=== PATIENT | male | born 1955 | race African-American/Black ===

== ENCOUNTER 2017-04-20 18:15 | Inpatient (IN) ==
[2017-04-20] MEDS ORDERED: LEVOFLOXACIN INJ 750 MG in PREMIX 1 EACH IV STA (18:36)
[2017-04-20] MEDS ORDERED: SODIUM CHLORIDE 0.9% 500 ML IV STA (18:36)
[2017-04-20] MEDS ORDERED: ALBUTEROL/IPRATROPIUM 3 ML NEB RESP TX STA (18:36)
[2017-04-20 19:09] LABS: Basophils % 0.2 % (0.0-0.8); Eosinophils # 0.1 10*3/uL (0.0-0.87); Eosinophils % 0.9 % (0.00-10.9); Hematocrit 42.3 VOL% (42.0-52.0); Hemoglobin 13.5 GM/DL (14.0-18.0); Immature Granulocytes % 0.6 %; Immature Granulocytes Absolute 0.03 #; Lymphocytes # 1.4 10*3/uL (1.4-4.0); Mean Corpuscular HGB Conc 31.9 GM/DL (32-36); Mean Corpuscular Hemoglobin 31 PG (27-34); Mean Corpuscular Volume 98.4 FL (87-102); Mean Platelet Volume 14.2 FL (9.6-12.0); Monocytes # 0.8 10*3/uL (0.11-0.8); Neutrophils # 3.1 10*3/uL (1.4-7.4); Neutrophils % 58.3 % (38.7-73.9); Red Cell Distribution Width 13.8 % (9.3-17.3); White Blood Count 5.4 T/CUMM (4-12)
[2017-04-20 19:13] LABS: Platelet Count 73 T/CUMM (130-400)
[2017-04-20 19:23] LABS: INR 1.1; PT Patient Result 11.3 SECS; Partial Thromboplastin Time 31.5 SECS (0-40)
[2017-04-20 19:23] LABS: Apearance,Urine CLEAR (Clear); Bacteria,Urine Few /HPF (Few); Bilirubin,Urine Negative (Negative); Blood, Urine Negative (Negative); Glucose,Urine (UA) Negative (Negative); Ketones,Urine Negative (Negative); Mucus,Urine Occasional /LPF (Occasional); Nitrite,Urine Negative (Negative); Protein,Urine Negative; RBC,Urine 1 /HPF (0-4); Urine Color Yellow (Yellow); Urine Specific Gravity 1.013 (1.001-1.035); WBC,Urine 1 /HPF (0-6)
[2017-04-20 19:26] LABS: Ammonia 58 UMOL/L (11-32)
[2017-04-20 20:24] LABS: Lactic Acid 0.9 MMOL/L (0.4-2.0)
[2017-04-20 20:29] LABS: Hypochromasia Slight; Platelet Estimate Decreased
[2017-04-20 20:36] LABS: Alanine Aminotransferase 68 U/L (16-61); Albumin 2.7 G/DL (3.4-5.0); Alkaline Phosphatase 164 U/L (45-117); Aspartate Amino Transferase 83 U/L (0-37); Blood Urea Nitrogen 52 MG/DL (7-18); Calcium 8.3 MG/DL (8.5-10.1); Glucose 160 MG/DL (74-106); Osmolality,Calculated 295.4 MOS/KG (273-304); Sodium 140 MMOL/L (136-145); Total Protein 6.2 G/DL (6.4-8.3)
[2017-04-20] MEDS ORDERED: SODIUM CHLORIDE 0.9% 2,000 ML IV STA (20:44)
[2017-04-20] MEDS ORDERED: LEVOFLOXACIN INJ 150 ML IV ONE (20:54)
[2017-04-20] MEDS ORDERED: hydrALAZINE 20 MG/1 ML VIAL ONE (22:51)
[2017-04-21] MEDS ORDERED: ONDANSETRON 4 MG/2 ML VIAL IV PRN (00:55)
[2017-04-21] MEDS ORDERED: hydrALAZINE 20 MG/1 ML VIAL IV PRN ×2 (00:55→11:26)
[2017-04-21] MEDS ORDERED: levETIRAcetam INJ 500 MG in SODIUM CHLORIDE 0.9% 50 ML IV SCH (02:00)
[2017-04-21] MEDS: METOCLOPRAMIDE 10 MG/2 ML VIAL IV SCH ×3 (02:07→14:30)
[2017-04-21] MEDS: DEXTROSE 5% NACL 0.45% 1,000 ML IV SCH ×3 (02:09→16:45)
[2017-04-21] MEDS: HYDROmorphone 2 MG/1 ML VIAL IV PRN (05:02)
[2017-04-21 07:54] LABS: Basophils % 0.2 % (0.0-0.8); Eosinophils # 0.1 10*3/uL (0.0-0.87); Eosinophils % 0.5 % (0.00-10.9); Hematocrit 44.4 VOL% (42.0-52.0); Hemoglobin 14.3 GM/DL (14.0-18.0); Immature Granulocytes % 0.9 %; Immature Granulocytes Absolute 0.09 #; Lymphocytes # 1.2 10*3/uL (1.4-4.0); Lymphocytes % 12.8 % (21.2-54.2); Mean Corpuscular HGB Conc 32.2 GM/DL (32-36); Mean Corpuscular Hemoglobin 32 PG (27-34); Mean Corpuscular Volume 97.8 FL (87-102); Mean Platelet Volume 13.4 FL (9.6-12.0); Monocytes # 1.3 10*3/uL (0.11-0.8); Monocytes % 13.6 % (1.7-12.7); Neutrophils # 6.9 10*3/uL (1.4-7.4); Platelet Count 80 T/CUMM (130-400); Red Blood Count 4.54 MC/CUMM (3.8-5.5); Red Cell Distribution Width 13.9 % (9.3-17.3); White Blood Count 9.6 T/CUMM (4-12)
[2017-04-21 08:26] LABS: Albumin 2.7 G/DL (3.4-5.0); Bilirubin,Total 1.5 MG/DL (0.2-1.0); Calcium 8.1 MG/DL (8.5-10.1); Osmolality,Calculated 292.3 MOS/KG (273-304); Potassium 5.2 MMOL/L (3.5-5.1)
[2017-04-21 08:41] LABS: Hypochromasia Slight
[2017-04-21] MEDS ORDERED: PANTOPRAZOLE 40 MG VIAL IV SCH (09:00)
[2017-04-21] MEDS: NITROGLYCERIN 2% OINT 1 INCH/GM PACK TOP SCH ×2 (09:59→20:53)
[2017-04-21] MEDS ORDERED: POLYETHYLENE GLYCOL POWDER 17 GM PACK PEG PRN (11:22)
[2017-04-21] MEDS ORDERED: ALBUTEROL/IPRATROPIUM 3 ML NEB RESP TX PRN (11:22)
[2017-04-21] MEDS ORDERED: hydrALAZINE 20 MG/1 ML VIAL IV SCH (11:30)
[2017-04-21] MEDS ORDERED: FUROSEMIDE 20 MG/2 ML VIAL IV SCH ×2 (11:30→21:47)
[2017-04-21] MEDS ORDERED: SKIN HEALING OINT (AQUAPHOR) 50 GM TUBE TOP PRN (12:08)
[2017-04-21] MEDS: cloNIDine 0.1 MG TABLET PEG SCH ×2 (14:30→20:54)
[2017-04-21] MEDS: ISOSORBIDE DINITRATE 20 MG TABLET PEG SCH ×2 (14:30→20:53)
[2017-04-21] MEDS: CARVEDILOL 12.5 MG TABLET PEG SCH ×2 (14:30→20:53)
[2017-04-21] MEDS: LACTULOSE 20 GM/30 ML UDCUP PO SCH ×2 (14:35→20:54)
[2017-04-21] MEDS: cefTRIAXone 1,000 MG in SYRINGE 1 EACH IV SCH (16:25)
[2017-04-21 17:32] LABS: Hepatitis A Ab IgM Quant 0.05 Index; Hepatitis A Ab IgM Result Negative (Negative); Hepatitis B Core IgM Quant 0.26 Index; Hepatitis B Core IgM Result Negative (Negative); Hepatitis B Surface Ag Quant < 0.10 Index; Hepatitis B Surface Ag Result Negative (Negative); Hepatitis C Virus Ab Quant > 11.00 Index; Hepatitis C Virus Ab Result Positive (Negative)
[2017-04-21] MEDS: DOXAZOSIN 4 MG TABLET PEG SCH (20:53)
[2017-04-21] MEDS: ASPIRIN CHEW 81 MG TABLET PO SCH (20:54)
[2017-04-21] MEDS: INSULIN REGULAR 100 UNIT/ML SUBCUT SCH (21:31)
[2017-04-21] MEDS ORDERED: FUROSEMIDE 20 MG/2 ML VIAL IV ONE (22:00)
[2017-04-21] MEDS: ALBUTEROL/IPRATROPIUM 3 ML NEB RESP TX SCH (23:43)
[2017-04-22] MEDS: DEXTROSE 5% NACL 0.45% 1,000 ML IV SCH ×3 (00:56→17:35)
[2017-04-22] MEDS: ALBUTEROL/IPRATROPIUM 3 ML NEB RESP TX SCH ×6 (02:31→23:50)
[2017-04-22] MEDS: ISOSORBIDE DINITRATE 20 MG TABLET PEG SCH ×3 (05:10→21:54)
[2017-04-22 07:09] LABS: Basophils % 0.3 % (0.0-0.8); Eosinophils # 0.1 10*3/uL (0.0-0.87); Eosinophils % 0.8 % (0.00-10.9); Hematocrit 39.1 VOL% (42.0-52.0); Immature Granulocytes % 0.5 %; Immature Granulocytes Absolute 0.03 #; Lymphocytes # 1.3 10*3/uL (1.4-4.0); Lymphocytes % 21.5 % (21.2-54.2); Mean Corpuscular HGB Conc 31.5 GM/DL (32-36); Mean Corpuscular Hemoglobin 31 PG (27-34); Mean Corpuscular Volume 98.2 FL (87-102); Mean Platelet Volume 12.6 FL (9.6-12.0); Monocytes % 15.8 % (1.7-12.7); Neutrophils # 3.8 10*3/uL (1.4-7.4); Neutrophils % 61.1 % (38.7-73.9); Red Blood Count 3.98 MC/CUMM (3.8-5.5); Red Cell Distribution Width 13.8 % (9.3-17.3)
[2017-04-22 07:18] LABS: Hemoglobin 12.3 GM/DL (14.0-18.0); Platelet Count 71 T/CUMM (130-400); White Blood Count 6.2 T/CUMM (4-12)
[2017-04-22 07:36] LABS: Eosinophils 1 % (0-10); Giant Platelets Few; Hypochromasia 1+; Lymphocytes 30 % (20-55); Ovalocytes Slight; Platelet Estimate Decreased; Segmented Neutrophils 51 % (50-85); Total Cells Counted 100
[2017-04-22 07:51] LABS: Albumin 2.4 G/DL (3.4-5.0); Bilirubin,Total 1.6 MG/DL (0.2-1.0); Calcium 8.2 MG/DL (8.5-10.1); Magnesium 1.6 MG/DL (1.8-2.4); Osmolality,Calculated 294.7 MOS/KG (273-304); Potassium 3.9 MMOL/L (3.5-5.1); Total Protein 6.2 G/DL (6.4-8.3)
[2017-04-22] MEDS: INSULIN REGULAR 100 UNIT/ML SUBCUT SCH ×4 (08:49→21:54)
[2017-04-22] MEDS: NITROGLYCERIN 2% OINT 1 INCH/GM PACK TOP SCH ×2 (09:30→21:59)
[2017-04-22] MEDS: LACTULOSE 20 GM/30 ML UDCUP PO SCH ×2 (09:30→21:54)
[2017-04-22] MEDS: CLOPIDOGREL 75 MG TABLET PO SCH (09:31)
[2017-04-22] MEDS: CARVEDILOL 12.5 MG TABLET PEG SCH ×2 (09:31→21:54)
[2017-04-22] MEDS: cloNIDine 0.1 MG TABLET PEG SCH ×4 (09:31→21:54)
[2017-04-22] MEDS: ASPIRIN CHEW 81 MG TABLET PO SCH (09:31)
[2017-04-22] MEDS ORDERED: DEXTROSE 50% 25 GM/50 ML VIAL IV ONE (12:17)
[2017-04-22] MEDS: cefTRIAXone 1,000 MG in SYRINGE 1 EACH IV SCH (12:24)
[2017-04-22] MEDS ORDERED: MAGNESIUM SULF RIDER 4 GM in PREMIX 1 EACH IV PRN (13:19)
[2017-04-22] MEDS: cefTRIAXone 500 MG in SYRINGE 1 EACH IV SCH (13:45)
[2017-04-22] MEDS: MAGNESIUM SULF RIDER 2 GM in PREMIX 1 EACH IV PRN (14:03)
[2017-04-22] MEDS: DOXAZOSIN 4 MG TABLET PEG SCH (21:53)
[2017-04-23] MEDS: DEXTROSE 5% NACL 0.45% 1,000 ML IV SCH ×3 (02:54→17:46)
[2017-04-23 03:03] LABS: Basophils % 0.4 % (0.0-0.8); Eosinophils # 0.1 10*3/uL (0.0-0.87); Eosinophils % 2.5 % (0.00-10.9); Hematocrit 37.2 VOL% (42.0-52.0); Hemoglobin 12.1 GM/DL (14.0-18.0); Immature Granulocytes % 0.4 %; Immature Granulocytes Absolute 0.02 #; Lymphocytes # 1.3 10*3/uL (1.4-4.0); Lymphocytes % 23.3 % (21.2-54.2); Mean Corpuscular HGB Conc 32.5 GM/DL (32-36); Mean Corpuscular Hemoglobin 31 PG (27-34); Mean Corpuscular Volume 95.9 FL (87-102); Mean Platelet Volume 13.8 FL (9.6-12.0); Monocytes # 0.9 10*3/uL (0.11-0.8); Monocytes % 15.3 % (1.7-12.7); Neutrophils # 3.2 10*3/uL (1.4-7.4); Neutrophils % 58.1 % (38.7-73.9); Platelet Count 69 T/CUMM (130-400); Red Blood Count 3.88 MC/CUMM (3.8-5.5); Red Cell Distribution Width 13.6 % (9.3-17.3); White Blood Count 5.5 T/CUMM (4-12)
[2017-04-23] MEDS: ALBUTEROL/IPRATROPIUM 3 ML NEB RESP TX SCH ×6 (03:19→23:15)
[2017-04-23 03:32] LABS: Albumin 2.4 G/DL (3.4-5.0); Bilirubin,Total 1.3 MG/DL (0.2-1.0); Osmolality,Calculated 287.4 MOS/KG (273-304); Potassium 3.3 MMOL/L (3.5-5.1); Total Protein 5.7 G/DL (6.4-8.3)
[2017-04-23 03:55] LABS: Band Neutrophils 2 % (0-10); Eosinophils 3 % (0-10); Lymphocytes 18 % (20-55); Metamyelocytes 1 %; Myelocytes 5 %; Segmented Neutrophils 64 % (50-85)
[2017-04-23 03:56] LABS: Platelet Estimate Decreased; Total Cells Counted 100
[2017-04-23] MEDS: ISOSORBIDE DINITRATE 20 MG TABLET PEG SCH ×3 (05:06→21:50)
[2017-04-23] MEDS: INSULIN REGULAR 100 UNIT/ML SUBCUT SCH ×4 (08:21→21:09)
[2017-04-23] MEDS: CLOPIDOGREL 75 MG TABLET PO SCH (09:44)
[2017-04-23] MEDS: NITROGLYCERIN 2% OINT 1 INCH/GM PACK TOP SCH ×2 (09:44→21:50)
[2017-04-23] MEDS: LACTULOSE 20 GM/30 ML UDCUP PO SCH ×2 (09:44→21:50)
[2017-04-23] MEDS: cloNIDine 0.1 MG TABLET PEG SCH ×4 (09:44→21:50)
[2017-04-23] MEDS: CARVEDILOL 12.5 MG TABLET PEG SCH ×2 (09:44→21:50)
[2017-04-23] MEDS: POTASSIUM CHLORIDE 20 MEQ/15 ML UDCUP PER TUBE PRN ×3 (09:44→15:10)
[2017-04-23] MEDS: cefTRIAXone 500 MG in SYRINGE 1 EACH IV SCH (12:36)
[2017-04-23] MEDS: DOXAZOSIN 4 MG TABLET PEG SCH (21:50)
[2017-04-24 03:14] LABS: Basophils % 0.4 % (0.0-0.8); Eosinophils # 0.2 10*3/uL (0.0-0.87); Eosinophils % 3.2 % (0.00-10.9); Hematocrit 39.8 VOL% (42.0-52.0); Hemoglobin 12.7 GM/DL (14.0-18.0); Immature Granulocytes % 0.2 %; Immature Granulocytes Absolute 0.01 #; Lymphocytes # 1.3 10*3/uL (1.4-4.0); Lymphocytes % 23.2 % (21.2-54.2); Mean Corpuscular HGB Conc 31.9 GM/DL (32-36); Mean Corpuscular Hemoglobin 31 PG (27-34); Mean Corpuscular Volume 97.1 FL (87-102); Mean Platelet Volume 12.8 FL (9.6-12.0); Monocytes # 0.8 10*3/uL (0.11-0.8); Monocytes % 14.5 % (1.7-12.7); Neutrophils # 3.3 10*3/uL (1.4-7.4); Neutrophils % 58.5 % (38.7-73.9); Platelet Count 70 T/CUMM (130-400); Red Cell Distribution Width 13.5 % (9.3-17.3); White Blood Count 5.7 T/CUMM (4-12)
[2017-04-24] MEDS: ALBUTEROL/IPRATROPIUM 3 ML NEB RESP TX SCH ×6 (03:23→23:55)
[2017-04-24 03:27] LABS: Calcium 8.1 MG/DL (8.5-10.1); Magnesium 1.7 MG/DL (1.8-2.4); Osmolality,Calculated 287.3 MOS/KG (273-304); Potassium 4.2 MMOL/L (3.5-5.1)
[2017-04-24 03:31] LABS: Albumin 2.4 G/DL (3.4-5.0); Bilirubin,Total 1.4 MG/DL (0.2-1.0); Calcium 8.3 MG/DL (8.5-10.1); Osmolality,Calculated 288.3 MOS/KG (273-304); Potassium 4.2 MMOL/L (3.5-5.1); Total Protein 6.1 G/DL (6.4-8.3)
[2017-04-24] MEDS: DEXTROSE 5% NACL 0.45% 1,000 ML IV SCH ×3 (03:46→17:19)
[2017-04-24] MEDS: ISOSORBIDE DINITRATE 20 MG TABLET PEG SCH ×3 (06:37→22:26)
[2017-04-24] MEDS: INSULIN REGULAR 100 UNIT/ML SUBCUT SCH ×4 (08:34→22:26)
[2017-04-24] MEDS: CLOPIDOGREL 75 MG TABLET PO SCH (10:11)
[2017-04-24] MEDS: cloNIDine 0.1 MG TABLET PEG SCH ×4 (10:11→22:25)
[2017-04-24] MEDS: CARVEDILOL 12.5 MG TABLET PEG SCH ×2 (10:11→22:26)
[2017-04-24] MEDS: FUROSEMIDE 20 MG/2 ML VIAL IV SCH (10:11)
[2017-04-24] MEDS: NITROGLYCERIN 2% OINT 1 INCH/GM PACK TOP SCH ×2 (10:11→22:26)
[2017-04-24] MEDS: LACTULOSE 20 GM/30 ML UDCUP PO SCH ×2 (10:11→22:26)
[2017-04-24] MEDS: cefTRIAXone 500 MG in SYRINGE 1 EACH IV SCH (15:59)
[2017-04-24] MEDS: amLODIPine 5 MG TABLET PO SCH (17:40)
[2017-04-24] MEDS: DOXAZOSIN 4 MG TABLET PEG SCH (22:26)
[2017-04-25] MEDS: ALBUTEROL/IPRATROPIUM 3 ML NEB RESP TX SCH ×5 (03:51→21:13)
[2017-04-25] MEDS: ISOSORBIDE DINITRATE 20 MG TABLET PEG SCH ×3 (05:17→22:57)
[2017-04-25] MEDS: DEXTROSE 5% NACL 0.45% 1,000 ML IV SCH ×3 (06:54→20:31)
[2017-04-25] MEDS: INSULIN REGULAR 100 UNIT/ML SUBCUT SCH ×4 (08:30→22:57)
[2017-04-25 08:59] LABS: Calcium 7.9 MG/DL (8.5-10.1); Magnesium 1.6 MG/DL (1.8-2.4); Osmolality,Calculated 284.5 MOS/KG (273-304); Prealbumin 9.3 MG/DL (20-40)
[2017-04-25] MEDS: cloNIDine 0.1 MG TABLET PEG SCH ×4 (10:05→22:56)
[2017-04-25] MEDS: CLOPIDOGREL 75 MG TABLET PO SCH (11:42)
[2017-04-25] MEDS: amLODIPine 5 MG TABLET PO SCH (11:42)
[2017-04-25] MEDS: CARVEDILOL 12.5 MG TABLET PEG SCH ×2 (11:42→22:57)
[2017-04-25] MEDS: NITROGLYCERIN 2% OINT 1 INCH/GM PACK TOP SCH ×2 (12:32→22:58)
[2017-04-25] MEDS: LACTULOSE 20 GM/30 ML UDCUP PO SCH ×2 (12:32→22:57)
[2017-04-25] MEDS: MAGNESIUM SULF RIDER 2 GM in PREMIX 1 EACH IV PRN (19:42)
[2017-04-25] MEDS: DOXAZOSIN 4 MG TABLET PEG SCH (22:56)
[2017-04-25] MEDS: cefTRIAXone 500 MG in SYRINGE 1 EACH IV SCH (22:58)
[2017-04-26] MEDS: ALBUTEROL/IPRATROPIUM 3 ML NEB RESP TX SCH ×7 (00:32→23:59)
[2017-04-26] MEDS: DEXTROSE 5% NACL 0.45% 1,000 ML IV SCH ×3 (01:34→22:00)
[2017-04-26 05:23] LABS: Basophils % 0.4 % (0.0-0.8); Eosinophils # 0.1 10*3/uL (0.0-0.87); Eosinophils % 2.6 % (0.00-10.9); Hematocrit 38.2 VOL% (42.0-52.0); Hemoglobin 12.6 GM/DL (14.0-18.0); Immature Granulocytes % 0.4 %; Immature Granulocytes Absolute 0.02 #; Lymphocytes % 20.5 % (21.2-54.2); Mean Corpuscular Hemoglobin 31 PG (27-34); Monocytes # 0.7 10*3/uL (0.11-0.8); Monocytes % 14.2 % (1.7-12.7); Neutrophils # 3.2 10*3/uL (1.4-7.4); Neutrophils % 61.9 % (38.7-73.9); Platelet Count 70 T/CUMM (130-400); Red Blood Count 4.02 MC/CUMM (3.8-5.5); Red Cell Distribution Width 13.5 % (9.3-17.3); White Blood Count 5.1 T/CUMM (4-12)
[2017-04-26] MEDS: ISOSORBIDE DINITRATE 20 MG TABLET PEG SCH ×3 (06:23→22:19)
[2017-04-26 08:29] LABS: Eosinophils 2 % (0-10); Giant Platelets Few; Hypochromasia 1+; Lymphocytes 25 % (20-55); Platelet Estimate Decreased; Segmented Neutrophils 58 % (50-85); Total Cells Counted 100
[2017-04-26] MEDS: INSULIN REGULAR 100 UNIT/ML SUBCUT SCH ×4 (10:25→22:23)
[2017-04-26] MEDS: cloNIDine 0.1 MG TABLET PEG SCH ×4 (10:26→22:19)
[2017-04-26] MEDS: FUROSEMIDE 20 MG/2 ML VIAL IV SCH (10:27)
[2017-04-26] MEDS: CARVEDILOL 12.5 MG TABLET PEG SCH ×2 (10:27→22:20)
[2017-04-26] MEDS: LACTULOSE 20 GM/30 ML UDCUP PO SCH ×2 (10:27→22:20)
[2017-04-26] MEDS: NITROGLYCERIN 2% OINT 1 INCH/GM PACK TOP SCH ×2 (10:30→22:18)
[2017-04-26] MEDS: amLODIPine 5 MG TABLET PO SCH (10:31)
[2017-04-26] MEDS: CLOPIDOGREL 75 MG TABLET PO SCH (10:32)
[2017-04-26] MEDS: DOXAZOSIN 4 MG TABLET PEG SCH (22:19)
[2017-04-26] MEDS: cefTRIAXone 500 MG in SYRINGE 1 EACH IV SCH (22:31)
[2017-04-26 23:57] LABS: Albumin 2.4 G/DL (3.4-5.0); Calcium 7.5 MG/DL (8.5-10.1); Osmolality,Calculated 283.5 MOS/KG (273-304)
[2017-04-27] MEDS: ALBUTEROL/IPRATROPIUM 3 ML NEB RESP TX SCH ×5 (04:03→22:57)
[2017-04-27 05:04] LABS: Basophils % 0.3 % (0.0-0.8); Eosinophils # 0.1 10*3/uL (0.0-0.87); Eosinophils % 1.1 % (0.00-10.9); Hemoglobin 12.7 GM/DL (14.0-18.0); Immature Granulocytes % 0.5 %; Immature Granulocytes Absolute 0.04 #; Lymphocytes # 1.2 10*3/uL (1.4-4.0); Lymphocytes % 15.7 % (21.2-54.2); Mean Corpuscular HGB Conc 32.6 GM/DL (32-36); Mean Corpuscular Hemoglobin 31 PG (27-34); Mean Corpuscular Volume 94.4 FL (87-102); Mean Platelet Volume 13.9 FL (9.6-12.0); Monocytes # 0.9 10*3/uL (0.11-0.8); Monocytes % 12.6 % (1.7-12.7); Neutrophils # 5.2 10*3/uL (1.4-7.4); Neutrophils % 69.8 % (38.7-73.9); Platelet Count 69 T/CUMM (130-400); Red Blood Count 4.13 MC/CUMM (3.8-5.5); Red Cell Distribution Width 13.5 % (9.3-17.3); White Blood Count 7.4 T/CUMM (4-12)
[2017-04-27 05:24] LABS: Giant Platelets Few; Hypochromasia 1+; Ovalocytes Slight; Platelet Estimate Decreased
[2017-04-27] MEDS: ISOSORBIDE DINITRATE 20 MG TABLET PEG SCH ×3 (05:33→23:26)
[2017-04-27] MEDS: DEXTROSE 5% NACL 0.45% 1,000 ML IV SCH ×3 (05:34→23:20)
[2017-04-27] MEDS: INSULIN REGULAR 100 UNIT/ML SUBCUT SCH ×4 (07:57→23:08)
[2017-04-27] MEDS: cloNIDine 0.1 MG TABLET PEG SCH ×4 (10:04→23:26)
[2017-04-27] MEDS: amLODIPine 5 MG TABLET PO SCH (10:04)
[2017-04-27] MEDS: CLOPIDOGREL 75 MG TABLET PO SCH (10:05)
[2017-04-27] MEDS: CARVEDILOL 12.5 MG TABLET PEG SCH ×2 (10:05→23:26)
[2017-04-27] MEDS: LACTULOSE 20 GM/30 ML UDCUP PO SCH ×2 (10:05→23:27)
[2017-04-27] MEDS: NITROGLYCERIN 2% OINT 1 INCH/GM PACK TOP SCH ×2 (10:06→23:27)
[2017-04-27] MEDS: cefTRIAXone 500 MG in SYRINGE 1 EACH IV SCH (23:21)
[2017-04-27] MEDS: DOXAZOSIN 4 MG TABLET PEG SCH (23:26)
[2017-04-28] MEDS: ALBUTEROL/IPRATROPIUM 3 ML NEB RESP TX SCH ×3 (03:16→07:12)
[2017-04-28] MEDS: ISOSORBIDE DINITRATE 20 MG TABLET PEG SCH (04:54)
[2017-04-28] MEDS: DEXTROSE 5% NACL 0.45% 1,000 ML IV SCH (06:49)
[2017-04-28 06:51] LABS: Calcium 8.1 MG/DL (8.5-10.1); Potassium 4.5 MMOL/L (3.5-5.1); Prealbumin 10.2 MG/DL (20-40)
[2017-04-28 08:12] VITALS: BP 135/71
[2017-04-28] MEDS: INSULIN REGULAR 100 UNIT/ML SUBCUT SCH (09:14)
[2017-04-28] MEDS: amLODIPine 5 MG TABLET PO SCH (09:29)
[2017-04-28] MEDS: LACTULOSE 20 GM/30 ML UDCUP PO SCH (09:31)
[2017-04-28] MEDS: cloNIDine 0.1 MG TABLET PEG SCH (09:31)
[2017-04-28] MEDS: CARVEDILOL 12.5 MG TABLET PEG SCH (09:32)
[2017-04-28] MEDS: NITROGLYCERIN 2% OINT 1 INCH/GM PACK TOP SCH (09:32)
[2017-04-28] MEDS: HYDROmorphone 2 MG/1 ML VIAL IV PRN (09:32)
[2017-04-28] MEDS: CLOPIDOGREL 75 MG TABLET PO SCH (09:32)
[2017-04-28] MEDS: FUROSEMIDE 20 MG/2 ML VIAL IV SCH (09:33)
== END 2017-04-28 10:35 | DRG 438 ==
LOC: EDUNIT# → EDBD → N.ED 18:15 → N.EDINP 21:01 → N.2E 23:36
PROVIDERS: ADMIT Internal Medicine; ATTEND Internal Medicine